=== PATIENT | female | born 1980 | race Caucasian/White ===

== ENCOUNTER 2021-12-17 10:43 | Emergency (ER) | payer MEDICAID ==
[~2021-12-17] VITALS: Ht 162.6 cm; Wt 68.2 kg
[~2021-12-17 10:43] MED LIST: ALPR-624 PO; CYCL-394 PO; HYDR-3965 PO; MAGN296S29 PO; NAPR-56 PO; ONDA4TAB59 PO; ONDA8TAB9 PO; PARO10TA23 PO
[2021-12-17 11:26] LABS: BASOPHILS % (AUTO) 0.4 % (0-1); EOSINOPHILS # (AUTO) 0.1 X10'3 (0-0.9); EOSINOPHILS % (AUTO) 0.9 % (0-6); HEMATOCRIT 40.4 % (35.0-45.0); HEMOGLOBIN 13.9 g/dl (12.0-16.0); LYMPHOCYTES # (AUTO) 2.5 X10'3 (1.1-4.8); LYMPHOCYTES % (AUTO) 27.2 % (21-51); MEAN CORPUSCULAR HEMOGLOBIN 32.4 PG (27.0-31.0); MEAN CORPUSCULAR HGB CONC 34.3 g/dL (33.0-36.5); MEAN CORPUSCULAR VOLUME 94.5 FL (78-98); MEAN PLATELET VOLUME 7.6 FL (7.4-10.4); MONOCYTES # (AUTO) 0.6 X10'3 (0-0.9); MONOCYTES % (AUTO) 6.3 % (2-12); NEUTROPHILS % (AUTO) 65.2 % (42-75); PLATELET COUNT 370 X10'3 (140-440); RED BLOOD COUNT 4.28 X10'6 (4.20-5.60); RED CELL DISTRIBUTION WIDTH 13.1 % (11.5-14.5); WHITE BLOOD COUNT 9.3 X10'3 (4.5-11.0)
[2021-12-17 11:41] LABS: ALANINE AMINOTRANSFERASE 13 U/L (12-78); ALBUMIN 4.4 G/DL (3.4-5.0); ALBUMIN/GLOBULIN RATIO 1.2 (1.1-1.5); ALKALINE PHOSPHATASE 47 IU/L (46-116); ANION GAP 11 (8-16); ASPARTATE AMINO TRANSFERASE 17 U/L (10-37); BILIRUBIN,TOTAL 0.4 MG/DL (0.1-1.0); BLOOD UREA NITROGEN 9 MG/DL (7-18); BUN/CREATININE RATIO 12.9 (6.6-38.0); CALCIUM 9.3 MG/DL (8.5-10.1); CHLORIDE 103 MMOL/L (99-107); GLUCOSE 117 MG/DL (70-104); POTASSIUM 3.4 MMOL/L (3.5-5.1); SODIUM 139 MMOL/L (135-145); TOTAL CARBON DIOXIDE 24.7 MMOL/L (24-32); TOTAL PROTEIN 8.1 G/DL (6.4-8.2); eGFR > 90 ML/MIN
--- NOTE | 2021-12-17 13:28 | NUR ---
PT POINTS TO LEFT UPPER CHEST WHEN ASKED ABOUT PAIN. PT REPORTS SQUEEZING PAIN W/ RADIATION TO MID LEFT BACK.
[2021-12-17] MEDS ORDERED: ondansetron 4mg rapidly disintigrating tab PO STA (13:43)
[2021-12-17] MEDS ORDERED: cloNIDine 0.1 mg tablet PO ONE (13:45)
[2021-12-17] MEDS ORDERED: mag hydrox/Alum hydrox/simeth 30ml oral suspension PO ONE (13:45)
[2021-12-17] MEDS ORDERED: famotidine 20mg tablet PO ONE (13:45)
[2021-12-17] MEDS ORDERED: LIDOcaine Viscous 15ml cup MM ONE (13:45)
[2021-12-17] MEDS ORDERED: sucralfate 1 gm tablet PO ONE (13:45)
[2021-12-17 14:26] VITALS: BP 157/99
== END 2021-12-17 14:34 | disposition home or self-care (01) ==
LOC: ER 10:44
DX: R07.89 Other chest pain (principal); R11.0 Nausea; I10 Essential (primary) hypertension; G89.29 Other chronic pain; Z87.440 Personal history of urinary (tract) infections; Z88.1 Allergy status to other antibiotic agents; Z88.8 Allergy status to other drugs, medicaments and biological substances; Z79.899 Other long term (current) drug therapy
CPT/HCPCS: 36415; 71045; 80053; 83880; 84484; 85025; 93005; 99285

== ENCOUNTER 2025-01-13 21:39 | Emergency (ER) | payer MEDICAID ==
[~2025-01-13] VITALS: Ht 162.6 cm; Wt 81.5 kg
[2025-01-13 21:49] VITALS: BP 151/114; PULSE 76; RESP 22; TEMP 98; O2SAT 98
--- NOTE | 2025-01-13 23:13 | Physician Documentation ---
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 Patient is coming in today due to the chronic inability to walk subjectively due to joint pain in her elbows and knees. Patient denies any active lesions or fever. Patient denies any vaginal discharge or vaginal odor. Patient does state she was having some suprapubic pain starting her menstrual cycle 3 days ago. Patient is concerned that she had a ruptured ovarian cyst that had gonorrhea in it that is caused overall cause further disseminating gonorrhea in her joints. Patient does not have a primary care provider Medication Reconciliation Allergies: Coded Allergies: acetaminophen (Verified Allergy, Severe, 01/05/19) hydrocodone bit (Verified Allergy, Severe, 01/05/19) azithromycin (Unverified Allergy, Intermediate, rash, 01/05/19) Scheduled Magnesium Citrate (Magnesium Citrate), 296 ML PO once Naproxen (Naproxen), 500 MG PO BID, (Reported) Ondansetron (Zofran Odt), 1 TABLET PO Q8H Ondansetron Hcl (Ondansetron Hcl), 4 MG PO Q8H PRN N/V Paroxetine Hcl (Paxil), 10 MG PO DAILY, (Reported) Scheduled PRN Alprazolam* (Xanax*), 0.5 MG PO DAILY PRN, (Reported) Cyclobenzaprine HCl (Cyclobenzaprine HCl), 10 MG PO DAILY PRN, (Reported) Hydrocodone Bit/Acetaminophen 5/325 MG ([place] 5/325 MG), 1-2 TAB PO Q4-6 hours P RN Past Medical History Past Medical History: UTI, Chronic Back Pain, *INFECTIOUS DZ*, Anxiety, Bipolar, Depression Past Surgical History: no surgical history Alcohol Use: None Drug Use: none Lives with: Family Lives In: Home Review of Systems All Other Systems at this time: Reviewed and Negative Musculoskeletal: Reports: see HPI Physical Exam Physical Exam Vital Signs: RN Vital Signs have been reviewed: Yes, Temperature: 98.0, Heart Rate: 76, Respiratory Rate: 22, BP: 151/114, Pulse Oximetry: 98, Weight: 81.500 General Appearance: alert, WD/WN, no apparent distress Head: normal inspection Neck: full range of motion Respiratory: no respiratory distress Chest: no accessory muscle use Cardiovascular Appears well perfused Extremities: normal inspection Extremities No obvious asymmetric or symmetrical joint effusion, erythema to the knees Neurologic: oriented x4 Skin: normal color, warm/dry; No: rash Progress Results/Orders Results/Orders Vital Signs 01/13/25 21:49 Temp 98.0 Pulse 76 Resp 22 B/P (MAP) 151/114 Pulse Ox 98 Medical Decision Making Findings Patient with history of gonorrheal infection in August treated for disseminated gonorrhea in October when evaluated at [facility] on October 29. Patient complaining of chronic pain to the joints with difficulty ambulating since discovery of disseminated gonorrhea. Patient states that after treatment she did not follow up with infection control and does not have a primary care provider. Patient confirmed that she did have treatment and denies reinfection of gonorrhea or any clinical signs of gonorrhea concerned due to increased menstrual pain which has resolved. Patient was given information for public health as well as primary care facilities that she can continue her workup and treatment. Departure Time of Disposition: 23:29 Disposition: 07 LEFT AWOL/ELOPED Impression: Primary Impression: Joint pain Additional Impression: DGI (disseminated gonococcal infection) Condition: Stable Additional Instructions: It is reassuring that you did receive treatment for disseminated gonorrhea. Joints that would have an active gonorrheal infection will usually have a more atypical appearance then how you are presenting today it is also reassuring that to receive treatment already. Continue to evaluate and follow-up with the Department of public Health to see if there is any further testing as well as rare/antibiotic resistant form of gonorrhea there is also a special testing for that that can be done through [place] department of public Health. Referrals: NO PRIMARY CARE PROVIDER (PCP) Education Educated: Patient Educated regarding: diagnosis, treatment, need for follow up Signature Scribe Signature: The note accurately reflects work and decisions made by me.Krissy CAVANAUGH 01/13/25 23:29 Attestation: The note accurately reflects work and decisions made by me.Krissy CAVANAUGH 01/13/25 23:29 KRISSY DREW NP Jan 13, 2025 23:13
== END 2025-01-13 23:33 | disposition left against medical advice (07) ==
LOC: ER 21:40
DX: M25.521 Pain in right elbow (principal); M25.522 Pain in left elbow; A54.9 Gonococcal infection, unspecified
CPT/HCPCS: 99282

== ENCOUNTER 2025-06-11 16:52 | Outpatient (CLI) | payer MEDICAID ==
--- NOTE | 2025-06-12 06:04 | RADIOLOGY REPORT ---
CLINICAL INDICATION: PAIN IN UNSPECIFIED ANKLE AND JOINTS OF UNSPECIFIED FOOT COMPARISON: None. TECHNIQUE: Multiplanar, multisequence MRI of the left ankle was performed without intravenous contrast. Contrast: None INTERPRETATION: Bones: No evidence of acute fracture. No evidence of marrow replacing lesion. Alignment: Unremarkable. Ligaments: The anterior talofibular ligament is intact. The posterior talofibular ligament is intact. The calcaneofibular ligament is intact. The inferior tibiofibular ligaments are intact. The visualized portions of the deltoid and spring ligaments are intact. Tendons:The Achilles tendon is torn. 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 Peroneus longus is intact. The posterior tibialis, flexor hallucis longus and flexor digitorum longus tendons are intact. The dorsal extensor tendons are intact. Plantar Fascia: The medial cord of the plantar fascia is intact. Bursae: The retroachilles bursa is not fluid distended. The retrocalcaneal bursa is not fluid distended. Mass/Fluid: No significant joint effusion. No mass or fluid in the sinus tarsi. Muscles: Intrinsic muscles of the foot are unremarkable. Soft tissues: Mild lateral soft tissue edema. IMPRESSION: 1. Anterior talofibular ligament tear of the left ankle. 2. Peroneus brevis tendinosis. 3. Mild lateral subcutaneous edema.
== END 2025-06-11 23:59 | disposition home or self-care (01) ==
LOC: MRI02 16:52
PROVIDERS: ATTEND Nurse Practitioner Occupational Health
DX: S93.492A Sprain of other ligament of left ankle, initial encounter (principal); M76.72 Peroneal tendinitis, left leg; R60.0 Localized edema; Y93.89 Activity, other specified; M25.572 Pain in left ankle and joints of left foot; X58.XXXA Exposure to other specified factors, initial encounter; Y92.89 Other specified places as the place of occurrence of the external cause; Y99.8 Other external cause status
CPT/HCPCS: 73721